=== PATIENT | female | born 1970 | race Caucasian/White ===

== ENCOUNTER → 2018-02-19 | Day surgery (SDC) | payer BC ==
[2018-02-19 11:31] VITALS: RESP 16; BMI 35.7
[2018-02-19 13:33] VITALS: BP 150/90; PULSE 77; TEMP 98.2
--- NOTE | 2018-02-19 14:27 | USB ---
EXAMINATION TYPE: US breast aspiration single RT DATE OF EXAM: 02/19/2018 HISTORY: Right breast mass. FINDINGS: Maximal barrier technique was utilized. The skin overlying a suitable path to the patient' s right breast lesion was localized with ultrasound and the overlying skin prepped and draped. Ultra sound was utilized with sterile technique. Lidocaine was used for local anesthesia. A skin ivana was made with a scalpel. An 18-gauge needle was advanced under direct ultrasound guidance and aspirated specimen obtained of the mass. Grayish fluid, approximately 1 to 2 cc was aspirated and disposed. Fo llowing the procedure, hemostasis achieved and the patient is discharged in stable condition without complication. IMPRESSION:STATUS POST ULTRASOUND GUIDED CORE ASPIRATION OF right breast cyst. THIS PROCEDURE IS PERF ORMED BY THE UNDERSIGNED.
== END | disposition home or self-care (01) ==
LOC: RADUSWWP 10:49
PROVIDERS: ATTEND Surgery
DX: N60.01 Solitary cyst of right breast (principal)
CPT/HCPCS: 76942; 19000; J2001